=== PATIENT | male | born 1935 | race Caucasian/White ===

== ENCOUNTER 2022-10-01 10:33 | Emergency (ER) | payer MEDICARE ==
[~2022-10-01] VITALS: Ht 165.1 cm; Wt 65.8 kg
--- NOTE | 2022-10-01 10:40 | NUR ---
REJI YUSUF 88, SENT BY HIS FACILITY FOR HAVING HEMRRHOIDS X2 DAYS AND DIARRHEA PT ALSO HADA GLF YESTERDAY AND HIT HIS HEAD REFUSED TO COME TO HOSPITAL
[2022-10-01 10:57] LABS: BASOPHILS # (AUTO) 0.1 K/uL (0.0-0.2); BASOPHILS % (AUTO) 0.4 % (0.0-2.0); EOSINOPHILS % (AUTO) 1.3 % (0.0-6.0); HEMATOCRIT 39 % (39-51); LYMPHOCYTES # (AUTO) 1.6 K/uL (0.8-4.8); LYMPHOCYTES % (AUTO) 10.1 % (20.0-44.0); MEAN CORPUSCULAR HGB CONC 33 g/dl (31.0-36.0); MEAN CORPUSCULAR VOLUME 98 fL (80-96); MONOCYTES # (AUTO) 1.2 K/uL (0.1-1.30); MONOCYTES % (AUTO) 7.7 % (2.0-12.0); NEUTROPHILS # (AUTO) 12.6 K/uL (1.8-8.9); NEUTROPHILS % (AUTO) 80.5 % (43.0-81.0); PLATELET COUNT (AUTO) 202 K/uL (150-450); RED BLOOD CELL COUNT(AUTO) 3.99 MIL/uL (4.5-6.0); WHITE BLOOD COUNT (AUTO) 15.7 K/uL (4.3-11.0)
--- NOTE | 2022-10-01 11:00 | NUR ---
taken to ct
[2022-10-01 11:05] LABS: CALCIUM, SERUM 9.8 mg/dL (8.5-10.1); CREATININE 1.1 mg/dL (0.6-1.3); POTASSIUM 4.5 mmol/L (3.5-5.1)
[2022-10-01 11:10] LABS: ALBUMIN 3.6 g/dL (3.4-5.0); BILIRUBIN,DIRECT 0.2 mg/dL (0.0-0.2); BILIRUBIN,TOTAL 1.3 mg/dL (0.2-1.0); TOTAL PROTEIN, SERUM 7.3 g/dL (6.4-8.2)
--- NOTE | 2022-10-01 11:42 | NUR ---
called ravi and set up s transport [place] to [facility] eta [phone]
[2022-10-01 13:40] VITALS: BP 124/67
== END 2022-10-01 12:40 ==
LOC: ER 10:39
DX: K64.4 Residual hemorrhoidal skin tags (principal); K92.2 Gastrointestinal hemorrhage, unspecified; T45.511A Poisoning by anticoagulants, accidental (unintentional), initial encounter; R51.9 Headache, unspecified; I10 Essential (primary) hypertension; Z88.2 Allergy status to sulfonamides; Z88.8 Allergy status to other drugs, medicaments and biological substances; Y92.89 Other specified places as the place of occurrence of the external cause
CPT/HCPCS: 36415; 70450-TC; 71045-TC; 80048-TC; 80076-TC; 85025-TC; 85730-TC; 86850-TC

== ENCOUNTER 2023-07-02 17:55 | Emergency (ER) | payer MEDICARE, BC ==
[~2023-07-02] VITALS: Ht 165.1 cm; Wt 68.0 kg
[2023-07-02] MEDS ORDERED: IOHEXOL-350 100 ML VIAL IV ONE (18:35)
[2023-07-02] MEDS ORDERED: IV NS 0.9% 250 ML IV ONE (18:36)
[2023-07-02 18:44] LABS: BASOPHILS # (AUTO) 0.1 K/uL (0.0-0.2); BASOPHILS % (AUTO) 0.9 % (0.0-2.0); EOSINOPHILS # (AUTO) 0.2 K/uL (0.0-0.7); EOSINOPHILS % (AUTO) 1.7 % (0.0-6.0); HEMATOCRIT 41 % (39-51); LYMPHOCYTES % (AUTO) 22.4 % (20.0-44.0); MEAN CORPUSCULAR HEMOGLOBIN 34 PG (26.0-33.0); MEAN CORPUSCULAR HGB CONC 34 g/dl (31.0-36.0); MEAN CORPUSCULAR VOLUME 99 fL (80-96); MONOCYTES # (AUTO) 0.6 K/uL (0.1-1.30); MONOCYTES % (AUTO) 6.4 % (2.0-12.0); NEUTROPHILS # (AUTO) 6.2 K/uL (1.8-8.9); NEUTROPHILS % (AUTO) 68.6 % (43.0-81.0); PLATELET COUNT (AUTO) 196 K/uL (150-450); RED BLOOD CELL COUNT(AUTO) 4.14 MIL/uL (4.5-6.0); RED CELL DISTRIBUTION WIDTH 12.7 % (11.5-15.0); WHITE BLOOD COUNT (AUTO) 9.1 K/uL (4.3-11.0)
[2023-07-02] MEDS ORDERED: LABETALOL HCL IV 100MG VIAL ONE (18:50)
[2023-07-02] MEDS ORDERED: HYDR-4303 PO (18:52)
[2023-07-02] MEDS ORDERED: ASPI-1420 PO (18:52)
[2023-07-02] MEDS ORDERED: WARF3TAB59 PO (18:52)
[2023-07-02] MEDS ORDERED: ACET-2605 PO (18:52)
[2023-07-02] MEDS ORDERED: ACET-868 PO (18:52)
[2023-07-02] MEDS ORDERED: BISA10SU11 RC (18:52)
[2023-07-02] MEDS ORDERED: MULT1TAB70 PO (18:52)
[2023-07-02] MEDS ORDERED: MAGN400O6 PO (18:52)
[2023-07-02] MEDS ORDERED: LOPE2CAP40 PO (18:52)
[2023-07-02] MEDS ORDERED: PHEN51CR14 RC (18:52)
[2023-07-02] MEDS ORDERED: MAG360OR3 PO (18:52)
[2023-07-02] MEDS ORDERED: HYDR30SU3 RC (18:52)
[2023-07-02] MEDS ORDERED: WARF4TAB72 PO (18:52)
[2023-07-02 18:58] LABS: INR 3.75 (0.91-1.10); PARTIAL THROMBOPLASTIN TIME 37.4 SEC (24.3-34.3); PROTHROMBIN TIME 36.5 SECS (9.2-11.1)
[2023-07-02 18:59] LABS: ALANINE AMINOTRANSFERASE 27 U/L (12-78); ALBUMIN 4.1 g/dL (3.4-5.0); ALKALINE PHOSPHATASE 80 U/L (46-116); ASPARTATE AMINOTRANSFERASE 20 U/L (15-37); BILIRUBIN,DIRECT 0.2 mg/dL (0.0-0.2); CALCIUM, SERUM 9.9 mg/dL (8.5-10.1); CARBON DIOXIDE 27 mmol/L (21-32); CHLORIDE 98 mmol/L (98-107); CREATININE 0.8 mg/dL (0.6-1.3); GLUCOSE 145 mg/dL (74-106); POTASSIUM 3.9 mmol/L (3.5-5.1); SODIUM SERUM 135 mmol/L (136-145); TOTAL PROTEIN, SERUM 7.5 g/dL (6.4-8.2); UREA NITROGEN, BLOOD 19 mg/dL (7-18)
[2023-07-02] MEDS ORDERED: LABETALOL 20 MG/4 ML VIAL IV ONE (19:00)
[2023-07-02] MEDS ORDERED: PROTHROMBIN COMPLEX CONCENTR 500 UNIT VIAL IV ONE (19:00)
[2023-07-02] MEDS ORDERED: ONDANSETRON HCL/PF - ER 4 MG/2 ML VIAL IV ONE (19:00)
[2023-07-02] MEDS ORDERED: NICARDIPINE IN DEXTROSE,ISO-OS 200 ML IV ONE (19:14)
[2023-07-02] MEDS ORDERED: PHYTONADIONE INJ 10 MG in IV NS 0.9% 50 ML IV ONE (19:30)
[2023-07-02] MEDS ORDERED: LABETALOL HCL IV 100MG VIAL IV ONE (19:30)
[2023-07-02] MEDS ORDERED: NICARDIPINE HCL 50 MG in IV NS 0.9% 230 ML IV PRN (19:30)
[2023-07-02 20:31] LABS: APPEARANCE,URINE CLEAR (CLEAR); BILIRUBIN,URINE NEGATIVE (NEGATIVE); BLOOD, URINE TRACE-INTA Ery/uL (NEGATIVE); COLOR,URINE YELLOW (YELLOW); KETONES,URINE TRACE mg/dL (NEGATIVE); LEUKOCYTE ESTERASE ,URINE NEGATIVE (NEGATIVE); NITRITE, URINE NEGATIVE (NEGATIVE); PH,URINE 7.5 (5.0-8.0); PROTEIN,URINE NEGATIVE (NEGATIVE); UGLUCOSE NEGATIVE (NEGATIVE); UROBILINOGEN,URINE 0.2 EU/dL (0.2)
[2023-07-02 20:44] LABS: ADD URINE CULTURE NO; BACTERIA,URINE 1+ /HPF (None Seen); SQUAMOUS EPITHELIAL CELL,UR None Seen /HPF (None Seen); WBC,URINE 0-2 /HPF (0-3)
[2023-07-02 20:45] VITALS: TEMP 96.7
[2023-07-02 21:30] VITALS: BP 142/97; O2SAT 99
== END 2023-07-02 21:46 | disposition short-term general hospital (02) ==
LOC: ER 17:55
DX: I61.9 Nontraumatic intracerebral hemorrhage, unspecified (principal); I10 Essential (primary) hypertension; R11.2 Nausea with vomiting, unspecified; R42 Dizziness and giddiness; R79.1 Abnormal coagulation profile; F03.90 Unspecified dementia, unspecified severity, without behavioral disturbance, psychotic disturbance, mood disturbance, and anxiety; Z88.2 Allergy status to sulfonamides; Z88.8 Allergy status to other drugs, medicaments and biological substances; Z60.2 Problems related to living alone; Z79.899 Other long term (current) drug therapy; Z20.822 Contact with and (suspected) exposure to COVID-19
CPT/HCPCS: 99291; 96365; 96375; 70450; 96367; 87426; 93005; 71045; 85025; 80048; 80076; 85610; 85730; 81001; 36415; 84484 ×2; 82962; J7168; J3430; J3490; J7050; Q9967; A4223 ×3; C9803

== ENCOUNTER 2024-12-16 08:30 | Inpatient (IN) | payer MEDICARE, BC ==
[~2024-12-16] VITALS: Ht 167.6 cm; Wt 58.1 kg
[~2024-12-16 08:30] MED LIST: ACET-2605 PO; ACET-868 PO; ASPI-1420 PO; BISA10SU11 RC; HYDR-4303 PO; HYDR30SU3 RC; LOPE2CAP40 PO; MAG360OR3 PO; MAGN400O6 PO; MULT1TAB70 PO; PHEN51CR14 RC; WARF3TAB59 PO; WARF4TAB72 PO
[2024-12-16] MEDS ORDERED: ACETAMINOPHEN 325 MG TABLET ONE (09:10)
[2024-12-16] MEDS ORDERED: LIDOCAINE 5% (PATCH) 1 EA PATCH TP ONE (09:10)
[2024-12-16] MEDS: LIDOCAINE 5% (PATCH) 1 EA PATCH TP STA (09:12)
[2024-12-16] MEDS: ACETAMINOPHEN 325 MG TABLET PO ONE (09:19)
[2024-12-16 10:43] LABS: BASOPHILS % (AUTO) 0.2 % (0.0-2.0); EOSINOPHILS % (AUTO) 0.1 % (0.0-6.0); HEMATOCRIT 35 % (39-51); LYMPHOCYTES # (AUTO) 0.7 K/uL (0.8-4.8); LYMPHOCYTES % (AUTO) 3.5 % (20.0-44.0); MEAN CORPUSCULAR HEMOGLOBIN 34 PG (26.0-33.0); MEAN CORPUSCULAR HGB CONC 35 g/dl (31.0-36.0); MEAN CORPUSCULAR VOLUME 99 fL (80-96); MONOCYTES # (AUTO) 0.9 K/uL (0.1-1.30); MONOCYTES % (AUTO) 4.7 % (2.0-12.0); NEUTROPHILS # (AUTO) 17.4 K/uL (1.8-8.9); NEUTROPHILS % (AUTO) 91.5 % (43.0-81.0); PLATELET COUNT (AUTO) 278 K/uL (150-450); RED CELL DISTRIBUTION WIDTH 12.4 % (11.5-15.0)
[2024-12-16 10:52] LABS: CALCIUM, SERUM 9.7 mg/dL (8.5-10.1); CARBON DIOXIDE 30 mmol/L (21-32); CHLORIDE 101 mmol/L (98-107); CREATININE 1.2 mg/dL (0.6-1.3); GLUCOSE 123 mg/dL (74-106); POTASSIUM 4.6 mmol/L (3.5-5.1); SODIUM SERUM 133 mmol/L (136-145); UREA NITROGEN, BLOOD 31 mg/dL (7-18)
[2024-12-16 10:58] LABS: ALANINE AMINOTRANSFERASE 33 U/L (12-78); ALKALINE PHOSPHATASE 102 U/L (46-116); ASPARTATE AMINOTRANSFERASE 26 U/L (15-37); BILIRUBIN,DIRECT 0.2 mg/dL (0.0-0.2); BILIRUBIN,TOTAL 0.9 mg/dL (0.2-1.0); TOTAL PROTEIN, SERUM 6.9 g/dL (6.4-8.2)
[2024-12-16 11:01] LABS: INR 1.03 (0.91-1.10); PARTIAL THROMBOPLASTIN TIME 30.5 SEC (24.3-34.3); PROTHROMBIN TIME 10.6 SECS (9.2-11.1)
[2024-12-16] MEDS ORDERED: LAMO100T17 PO (11:04)
[2024-12-16] MEDS ORDERED: CHOL500062 PO (11:04)
[2024-12-16] MEDS ORDERED: BREX1TAB PO (11:04)
[2024-12-16] MEDS ORDERED: FOLI0.8T3 PO (11:04)
[2024-12-16] MEDS ORDERED: VENL75TA74 PO (11:04)
[2024-12-16] MEDS ORDERED: CYAN100096 PO (11:04)
[2024-12-16] MEDS ORDERED: IV NS 0.9% 250 ML IV ONE (11:22)
[2024-12-16] MEDS ORDERED: IOHEXOL-300 100 ML VIAL IV ONE (11:22)
[2024-12-16] MEDS ORDERED: MORPHINE SULFATE INJ 2 MG/ML DISP.SYRIN ONE (12:07)
[2024-12-16] MEDS ORDERED: ONDANSETRON HCL/PF 4 MG/2 ML VIAL ONE (12:07)
[2024-12-16] MEDS: ONDANSETRON HCL/PF 4 MG/2 ML VIAL IV ONE (12:13)
[2024-12-16] MEDS: MORPHINE SULFATE INJ 2 MG/ML DISP.SYRIN IV ONE (12:17)
[2024-12-16 15:30] VITALS: BP 123/71; TEMP 98.4; O2SAT 93
[2024-12-16 16:00] VITALS: BP 123/71; TEMP 98.4; O2SAT 93
[2024-12-16] MEDS ORDERED: MAGNESIUM HYDROXIDE 30 ML UDC PO PRN (16:00)
[2024-12-16] MEDS ORDERED: MAG HYDROX/AL HYDROX/SIMETH 30 ML UDC PO PRN (16:00)
[2024-12-16] MEDS ORDERED: Z GUARD REMEDY 4 OZ OINT TP PRN (16:00)
[2024-12-16] MEDS ORDERED: ACETAMINOPHEN 325 MG TABLET PO PRN (16:00)
[2024-12-16] MEDS ORDERED: ONDANSETRON HCL/PF 4 MG/2 ML VIAL IVP PRN (16:00)
[2024-12-16] MEDS ORDERED: HYDROMORPHONE 1 MG/1 ML DISP.SYRIN IV PRN (16:30)
[2024-12-16] MEDS: IV NS 0.9% 1,000 ML IV SCH (17:36)
[2024-12-16 17:40] LABS: APPEARANCE,URINE SLIGHTLY CLOUDY (CLEAR); BILIRUBIN,URINE NEGATIVE (NEGATIVE); BLOOD, URINE 3+ Ery/uL (NEGATIVE); COLOR,URINE YELLOW (YELLOW); KETONES,URINE TRACE mg/dL (NEGATIVE); LEUKOCYTE ESTERASE ,URINE NEGATIVE (NEGATIVE); NITRITE, URINE NEGATIVE (NEGATIVE); PROTEIN,URINE TRACE mg/dl (NEGATIVE); UGLUCOSE NEGATIVE (NEGATIVE); UROBILINOGEN,URINE 0.2 EU/dL (0.2)
[2024-12-16] MEDS: CEFTRIAXONE 1 G in IV D5W 50 ML IV SCH (17:49)
[2024-12-16] MEDS: KETOROLAC TROMETHAMINE 15 MG/ML VIAL IV SCH (17:51)
[2024-12-16 17:57] LABS: ADD URINE CULTURE YES; BACTERIA,URINE Many /HPF (None Seen); RBC,URINE 81-100 /HPF (0-2); SQUAMOUS EPITHELIAL CELL,UR Few /HPF (None Seen)
[2024-12-16 20:00] VITALS: BP 125/95; TEMP 98.4; O2SAT 95
[2024-12-16] MEDS: SENNOSIDES 8.6 MG TABLET PO SCH (21:40)
[2024-12-16] MEDS: POLYETHYLENE GLYCOL 3350 17 GM POWD.PACK PO SCH (21:40)
[2024-12-17] VITALS (7 sets, daily range): BP systolic 85–163; BP diastolic 55–70; TEMP 97.5–98.8; O2SAT 92–100
[2024-12-17] MEDS: IV NS 0.9% 500 ML BAG IV ONE (00:45)
[2024-12-17 06:53] LABS: BASOPHILS % (AUTO) 0.2 % (0.0-2.0); HEMATOCRIT 31 % (39-51); HEMOGLOBIN 10.4 g/dL (13.5-17.5); LYMPHOCYTES % (AUTO) 3.4 % (20.0-44.0); MEAN CORPUSCULAR HEMOGLOBIN 34 PG (26.0-33.0); MEAN CORPUSCULAR HGB CONC 34 g/dl (31.0-36.0); MEAN CORPUSCULAR VOLUME 100 fL (80-96); MONOCYTES # (AUTO) 1.4 K/uL (0.1-1.30); MONOCYTES % (AUTO) 4.8 % (2.0-12.0); NEUTROPHILS # (AUTO) 25.8 K/uL (1.8-8.9); NEUTROPHILS % (AUTO) 91.6 % (43.0-81.0); PLATELET COUNT (AUTO) 258 K/uL (150-450); RED BLOOD CELL COUNT(AUTO) 3.05 MIL/uL (4.5-6.0); RED CELL DISTRIBUTION WIDTH 12.5 % (11.5-15.0); WHITE BLOOD COUNT (AUTO) 28.2 K/uL (4.3-11.0)
[2024-12-17 07:52] LABS: CALCIUM, SERUM 9.3 mg/dL (8.5-10.1); CARBON DIOXIDE 28 mmol/L (21-32); CHLORIDE 102 mmol/L (98-107); CREATININE 1.2 mg/dL (0.6-1.3); GLUCOSE 124 mg/dL (74-106); MAGNESIUM 2.2 mg/dL (1.8-2.4); PHOSPHORUS 3.7 mg/dL (2.5-4.9); POTASSIUM 4.3 mmol/L (3.5-5.1); SODIUM SERUM 135 mmol/L (136-145); UREA NITROGEN, BLOOD 34 mg/dL (7-18)
[2024-12-17] MEDS: MULTIVITAMINS,THERAGRAN 1 UDTAB TABLET PO SCH (08:55)
[2024-12-17] MEDS: LamoTRIgine 100 MG TABLET PO SCH (08:55)
[2024-12-17] MEDS: FOLIC ACID 1 MG TABLET PO SCH (08:55)
[2024-12-17] MEDS: CYANOCOBALAMIN 500 MCG TABLET PO SCH (08:56)
[2024-12-17] MEDS: CHOLECALCIFEROL 1,000 UNIT TABLET (VIT D3) PO SCH (08:56)
[2024-12-17] MEDS: VENLAFAXINE 37.5 MG TABLET PO SCH (08:58)
[2024-12-17] MEDS: IV NS 0.9% 1,000 ML IV PRN (11:48)
[2024-12-17] MEDS: IV NS 0.9% 1,000 ML IV SCH (14:00)
[2024-12-17] MEDS: VANCOMYCIN 1.5 GM in IV D5W 500 ML IV ONE (16:09)
[2024-12-18] VITALS: BP 133/79; TEMP 98.2; O2SAT 97
[2024-12-18 07:47] LABS: BASOPHILS % (AUTO) 0.2 % (0.0-2.0); EOSINOPHILS # (AUTO) 0.1 K/uL (0.0-0.7); EOSINOPHILS % (AUTO) 0.5 % (0.0-6.0); HEMATOCRIT 30 % (39-51); HEMOGLOBIN 10.1 g/dL (13.5-17.5); LYMPHOCYTES # (AUTO) 1.6 K/uL (0.8-4.8); LYMPHOCYTES % (AUTO) 10.2 % (20.0-44.0); MEAN CORPUSCULAR HEMOGLOBIN 34 PG (26.0-33.0); MEAN CORPUSCULAR HGB CONC 34 g/dl (31.0-36.0); MEAN CORPUSCULAR VOLUME 100 fL (80-96); MONOCYTES # (AUTO) 1.2 K/uL (0.1-1.30); MONOCYTES % (AUTO) 7.7 % (2.0-12.0); NEUTROPHILS # (AUTO) 12.5 K/uL (1.8-8.9); NEUTROPHILS % (AUTO) 81.4 % (43.0-81.0); PLATELET COUNT (AUTO) 253 K/uL (150-450); RED BLOOD CELL COUNT(AUTO) 2.96 MIL/uL (4.5-6.0); RED CELL DISTRIBUTION WIDTH 12.3 % (11.5-15.0); WHITE BLOOD COUNT (AUTO) 15.4 K/uL (4.3-11.0)
[2024-12-18 08:00] VITALS: BP 118/56; TEMP 97.9; O2SAT 99
[2024-12-18 08:06] LABS: ALBUMIN 2.6 g/dL (3.4-5.0); BILIRUBIN,TOTAL 0.7 mg/dL (0.2-1.0); CALCIUM, SERUM 9.6 mg/dL (8.5-10.1); MAGNESIUM 2.2 mg/dL (1.8-2.4); PHOSPHORUS 2.9 mg/dL (2.5-4.9); POTASSIUM 4.1 mmol/L (3.5-5.1); TOTAL PROTEIN, SERUM 6.3 g/dL (6.4-8.2)
[2024-12-18 08:14] LABS: CREATININE, URINE 196.5 MG/DL (30.0-125.0); URINE TOTAL PROTEIN 58.8 mg/dL (0-11.9)
[2024-12-18] MEDS: BREXPIPRAZOLE 1 MG PO SCH (09:06)
[2024-12-18] MEDS ORDERED: CELE100C PO (11:10)
[2024-12-18] MEDS ORDERED: HYDR-4275 PO (11:10)
[2024-12-18] MEDS ORDERED: VANC1VIA34 XX (11:10)
[2024-12-18] MEDS ORDERED: BACL5TAB PO (11:10)
[2024-12-18] MEDS ORDERED: CEFT1FRO2 IV (11:10)
[2024-12-18 12:00] VITALS: BP 132/80; TEMP 97.7; O2SAT 98
[2024-12-18] MEDS: HYDROCODONE/APAP 5/325MG TABLET PO PRN (13:16)
[2024-12-18] MEDS ORDERED: VANCOMYCIN 1 GM in IV D5W 250ml IV SCH (15:00)
[2024-12-18] MEDS ORDERED: VANCOMYCIN 750 MG in IV D5W 250 ML IV SCH (15:00)
[2024-12-19 08:11] LABS: PTH, INTACT 20 pg/mL (15-65)
== END 2024-12-18 18:10 | DRG 184 ==
LOC: ER 08:35 → TELE IN 11:40 → TELE 13:32
PROVIDERS: ADMIT Nurse Practitioner Acute Care; ATTEND Nurse Practitioner Acute Care
DX: S22.41XA Multiple fractures of ribs, right side, initial encounter for closed fracture (principal); E87.1 Hypo-osmolality and hyponatremia; N13.2 Hydronephrosis with renal and ureteral calculous obstruction; S22.089A Unspecified fracture of T11-T12 vertebra, initial encounter for closed fracture; N17.9 Acute kidney failure, unspecified; W01.0XXA Fall on same level from slipping, tripping and stumbling without subsequent striking against object, initial encounter; K80.20 Calculus of gallbladder without cholecystitis without obstruction; M48.061 Spinal stenosis, lumbar region without neurogenic claudication; K59.00 Constipation, unspecified; E86.0 Dehydration; Z88.2 Allergy status to sulfonamides; Z66 Do not resuscitate; R29.6 Repeated falls; E83.9 Disorder of mineral metabolism, unspecified; F03.90 Unspecified dementia, unspecified severity, without behavioral disturbance, psychotic disturbance, mood disturbance, and anxiety; Z86.73 Personal history of transient ischemic attack (TIA), and cerebral infarction without residual deficits; I12.9 Hypertensive chronic kidney disease with stage 1 through stage 4 chronic kidney disease, or unspecified chronic kidney disease; D72.829 Elevated white blood cell count, unspecified; N18.9 Chronic kidney disease, unspecified; R26.9 Unspecified abnormalities of gait and mobility; D63.8 Anemia in other chronic diseases classified elsewhere; J98.4 Other disorders of lung; N40.0 Benign prostatic hyperplasia without lower urinary tract symptoms; Y93.9 Activity, unspecified; Y92.89 Other specified places as the place of occurrence of the external cause
CPT/HCPCS: 36415; 71260-TC; 72131-TC; 76770-TC; 80048-TC; 80053-TC; 80076-TC; 81001; 82550-TC; 82570-TC; 83735-TC; 83970; 84100-TC; 84155; 84165; 84300-TC; 85025-TC; 85730-TC; 86850-TC; 87040-TC; 87081-TC; 87086-TC; 87186-TC; 92526; 92611-TC; 97116-TC; 97530-TC; 97535-TC; G0378; J0696; J1885; J2270; J2405; J3370; J3371; J7030; J7040; J7050; J7060; Q9967